=== PATIENT | male | born 1965 | race Caucasian/White ===

== ENCOUNTER 2019-05-22 05:47 | Day surgery (SDC) | payer OTHER, SELFPAY ==
[2019-05-21 13:10] VITALS: BMI 31.4
--- NOTE | 2019-05-22 05:59 | PM.HPUD ---
H&P update H&P Update: DATE OF SURGERY/PROCEDURE: 05/22/19 DATE H&P PERFORMED: 05/13/19 H&P UPDATE INFORMATION: H&P completed within last 30 days, No changes to prior documentation and H&P is in [facility] EMR on date indicated PREOP DIAGNOSIS: Deep foreign body right foot PRIMARY INDICATION FOR PROCEDURE: Deep foreign body right foot, persistent pain following puncture wound PLANNED PROCEDURE: Operation Date: 05/22/19 07:10 Proposed Procedures p Foreign Body Removal 75835 S91.341A(Right) - Markel López DPM Full H&P Perinent History: Medical/Surgical History: Medical History (Updated 05/13/19 @ 17:39 by Markel López DPM) COPD (chronic obstructive pulmonary disease) (Acute) Depression with anxiety (Acute) Hypertension (Acute) Family History: Family History (Updated 05/13/19 @ 10:06 by Chapis Hu LPN) Father COPD (chronic obstructive pulmonary disease) Mother Hypertension Denies family history of Diabetes CAD (coronary artery disease) Clotting disorder Dementia Hyperlipidemia Psychiatric illness Chronic kidney disease (CKD) Suicide Anesthesia complication Bleeding disorder Family history of premature coronary artery disease Lung disease Cancer Stroke Social History: Social History Smoking and tobacco status: former smoker Quit status (tobacco): has quit using tobacco Year quit tobacco: 12 years ago Alcohol intake: current Alcohol intake frequency: holidays/special occasions only Current occupational status: employed Current occupation: [employer]
[2019-05-22 06:04] VITALS: BP 127/82; PULSE 102; RESP 20; TEMP 36.3; O2SAT 96
[2019-05-22] MEDS: sodium chloride 0.9% 1,000 ML 30 ML IV (06:17)
--- NOTE | 2019-05-22 06:33 | P.ANESASSM_ITS ---
Pre-Anesthetic Assessment Pre-Anesthetic Assessment: Height/Weight: Height 1.96 m Weight 120.202 kg Temp Pulse Resp BP Pulse Ox 97.4 F L 102 H 20 H 127/82 96 05/22/19 06:04 05/22/19 06:04 05/22/19 06:04 05/22/19 06:04 05/22/19 06:04 Preop Diagnosis: Deep foreign body right foot Proposed Procedure: Operation Date: 05/22/19 07:10 Proposed Procedures p Foreign Body Removal 72541 S91.341A(Right) - Markel López DPM Last intake: Intake Last Liquid Date 05/21/19 Last Liquid Time 23:00 Last Solid Date 05/21/19 Last Solid Time 18:00 Social: Packs per day: 3 Pack years: 70 Comment: quit 12 y ago Exam: Pre-Anes Outpt Exam: alert, oriented x 3, clear to auscultation bilaterally and regular rate & rhythm Airway: Submandibular: WNL Cervical ROM: WNL MP: 1 Pulmonary: Pulmonary: COPD CV/HEM: CV/HEM: HTN Comments: rx'd 3y stress test 2y negative Anesthetic Plan: ASA status: 2 Anesthesia: General Meds/Allergies Current Medications: Current Medications Generic Name Dose Route Start Last Admin Trade Name Freq PRN Reason Stop Dose Admin Sodium Chloride 1,000 mls @ 30 ml s/hr 05/22/19 06:15 05/22/19 06:17 Sodium Chloride 0.9% IV 05/23/19 06:14 30 mls/hr .Q24H QI Administration PFSH Anesthesia PFSH: Medical History (Updated 05/13/19 @ 17:39 by Markel López DPM) COPD (chronic obstructive pulmonary disease) (Acute) Depression with anxiety (Acute) Hypertension (Acute) Surgical History (Updated 05/21/19 @ 13:05 by Mayra Quinn RN) History of incision and drainage (Acute) Patient stepped on a splinter and had to have it removed . In the [place] Social History Smoking and tobacco status: former smoker Quit status (tobacco): has quit using tobacco Year quit tobacco: 12 years ago Alcohol intake: current Alcohol intake frequency: holidays/special occasions only Current occupational status: employed Current occupation: [employer] Anesthesia Cardiac Studies: No Data to Display
[2019-05-22 07:53] VITALS: BP 104/75; PULSE 84; RESP 18; TEMP 36.1; O2SAT 97
--- NOTE | 2019-05-22 07:56 | PM.OP ---
Operative Report Date of procedure: May 22, 2019 Pre-op Diagnosis: Deep foreign body right foot Post-op diagnosis: same Post-op Findings: Foreign body consistent with wood right plantar forefoot Procedure Done: Deep foreign body removal right foot Implants: No implants Specimens removed/disposition: Foreign body removed consistent with a wood sent to microbiology for culture and sensitivity Pathology: none sent Surgeon: Markel López D.P.M. Library Cataloging Technician: [employer] Anesthesia: MAC and Local Estimated blood loss (mL): 2 Tourniquet time: 24 minutes IV fluids: None Urine output: None Complications: No complications Findings: Deep foreign body consistent with wood splinter Condition: stable Disposition: PACU Brief History: Patient is a pleasant 53-year-old male who sustained a puncture wound to his foot while on a work trip in the [place]. He has had persistent pain. On MRI foreign body appreciated with walled off abscess. Patient requesting removal. Risks include pain, bleeding, numbness, infection, painful scar, delayed healing, need for antibiotics, need for further surgical intervention. Also risk for damage to adjacent soft tissue structures such as tendon, muscle and nerve. Also risk for fat pad atrophy and metatarsalgia. Patient wishes to proceed. Verbal and written consent obtained. Procedure: Under mild sedation the patient was brought to the operating room and placed on the operating table in supine position. A timeout was performed. Anesthesia was then administered by the anesthesia service. Local anesthesia was injected by myself consisting of 30 cc of 0.5% Marcaine plain and a fourth ray block to the right foot. Well-padded pneumatic tourniquet was applied to the right ankle. The right lower extremity was then scrubbed, prepped and draped utilizing normal aseptic technique. Right foot was then examined a weighted with an Esmarch bandage and the tourniquet was inflated to 250 mmHg. Attention was directed to the plantar aspect of the right forefoot and at the level of the fourth intermetatarsal space a curvilinear incision was made with a #15 blade through skin and dissection was carried down through subcutaneous tissue in 2 layers of deep fascia utilizing a combination of sharp and blunt technique. Care was taken to retract and preserve neurovascular and tendinous structures. Bleeders were ligated and cauterized as necessary. A abscess with serosanguineous fluid was encountered and drained, a small foreign body consistent with wood measuring 1 mm x 4 mm was visualized and removed, this was sent to microbiology for culture and sensitivity. Excisional debridement was performed of all devitalized tissue this was minimal this included skin, dermis, epidermis, subcutaneous tissue, adipose and deep fascia. Incision site was flushed with saline solution. No remaining foreign body or devitalized tissue appreciated. Deep layer was reapproximated with 2-0 Vicryl. Subcutaneous tissue closed with 4-0 Vicryl and skin closed with 3-0 nylon. Incision site was dressed with Adaptic, sterile 4 x 4's, Kerlix and Thanh wrap. Cam boot was applied. Tourniquet was then deflated and a prompt hyperemic response was noted to the distal digits of the right foot. Patient tolerated the procedure and anesthesia well and was transferred to the PACU with vital signs stable and vascular status intact. Following a period of post operative monitoring he will be discharged home was provided a prescription for Ridgeway 7.5/325 to be taken every 4-6 hours as needed for pain he is to use this judiciously. Also a prescription for Bactrim DS was sent to patient's pharmacy to be taken twice daily for 10 days. Patient is to be limited weightbearing cam boot at all times was also sent an order for crutches. He was provided my cell phone number and is to contact me with any postoperative questions or concerns.
[2019-05-22 08:06] VITALS: BP 115/66; PULSE 90; RESP 18; O2SAT 97
[2019-05-22 08:48] VITALS: BP 124/80; PULSE 86; RESP 18; O2SAT 97
== END 2019-05-22 08:53 | disposition home or self-care (01) ==
PROVIDERS: Family Provider Family Medicine; Visit Provider Podiatrist Foot & Ankle Surgery
PROC: (CPT 28190; principal; 2019-05-22 07:00)
DX: S91.342A Puncture wound with foreign body, left foot, initial encounter (principal); X58.XXXA Exposure to other specified factors, initial encounter; J44.9 Chronic obstructive pulmonary disease, unspecified; I10 Essential (primary) hypertension; F32.9 Major depressive disorder, single episode, unspecified; Z87.891 Personal history of nicotine dependence; Z82.49 Family history of ischemic heart disease and other diseases of the circulatory system
CPT/HCPCS: 28190; 12345; 87070; 87075; 87077; 87176; 87186; 87205; J0690; J2001; J2250; J2704; J3010; J3490; J7030

== ENCOUNTER → 2020-01-08 11:57 | Outpatient (BNVA) | payer OTHER, SELFPAY | PROVIDERS: Family Provider Family Medicine; Visit Provider Surgery | DX: Z20.828 Contact with and (suspected) exposure to other viral communicable diseases (principal) | CPT/HCPCS: 87635 ==

== ENCOUNTER 2020-01-13 08:10 | Day surgery (SDC) | payer OTHER, SELFPAY ==
[2020-01-11 12:03] VITALS: BMI 32.0
[2020-01-13 08:29] VITALS: BP 134/81; PULSE 89; RESP 18; TEMP 36.8; O2SAT 94
[2020-01-13] MEDS: sodium chloride 0.9% 1,000 ML 30 ML IV (08:49)
--- NOTE | 2020-01-13 09:14 | W.PM.OPSUD ---
Surgery/Procedure H&P Update DATE OF PROCEDURE: January 13, 2020 DATE H&P PERFORMED: 12/28/19 H&P UPDATE INFORMATION: I have reviewed H&P completed within last 30 days, I have examined patient prior to procedure and No changes to prior documentation PREOP DIAGNOSIS: Screening colonoscopy PRIMARY INDICATION FOR PROCEDURE: The same PLANNED PROCEDURE: Operation Date: 01/13/20 09:45 Proposed Procedures p Colonoscopy 68037 Z12.11(Not Applicable) - Juan Pablo Soto MD
--- NOTE | 2020-01-13 09:28 | ANES.PREANE2 ---
Pre-Anesthetic Assessment Pre-Anesthetic Assessment: Height/Weight: Height 1.96 m Weight 122.47 kg Temp Pulse Resp BP Pulse Ox 98.2 F 89 18 134/81 94 01/13/20 08:29 01/13/20 08:29 01/13/20 08:29 01/13/20 08:29 01/13/20 08:29 Preop Diagnosis: Screening colonoscopy Proposed Procedure: Operation Date: 01/13/20 09:45 Proposed Procedures p Colonoscopy 53145 Z12.11(Not Applicable) - Juan Pablo Soto MD Familial anesthetic complications: none Was Beta Christopher taken within 24 hours: N/A Last intake: Intake Last Liquid Date 01/12/20 Last Liquid Time 23:00 Last Solid Date 01/12/20 Last Solid Time 07:00 Social: Social History: No alcohol and No tobacco Exam: Pre-Anes Outpt Exam: alert, oriented x 3, clear to auscultation bilaterally and regular rate & rhythm Airway: Cervical ROM: WNL MP: 2 Dentition: Full Pulmonary: Pulmonary: COPD CV/HEM: CV/HEM: HTN Anesthetic Plan: ASA status: 2 Anesthesia: MAC Risk of > 500 ml blood loss (7ml/kg in children): No Meds/Allergies Current Medications: Current Medications Generic Name Dose Route Start Last Admin Trade Name Freq PRN Reason Stop Dose Admin Sodium Chloride 1,000 mls @ 30 ml s/hr 01/13/20 08:30 01/13/20 08:49 Sodium Chloride 0.9% IV 01/14/20 08:29 30 mls/hr .Q24H QI Administration PFSH Anesthesia PFSH: Medical History COPD (chronic obstructive pulmonary disease) Depression with anxiety Hypertension Surgical History History of incision and drainage Patient stepped on a splinter and had to have it removed . In the [place] Hx of hemorrhoidectomy Family History Father COPD (chronic obstructive pulmonary disease) Mother Hypertension Denies family history of Diabetes CAD (coronary artery disease) Clotting disorder Dementia Hyperlipidemia Psychiatric illness Chronic kidney disease (CKD) Suicide Anesthesia complication Bleeding disorder Family history of premature coronary artery disease Lung disease Cancer Stroke Social History Smoking and tobacco status: former smoker Quit status (tobacco): has quit using tobacco Year quit tobacco: 12 years ago Alcohol intake: current Alcohol intake frequency: holidays/special occasions only Current occupational status: employed Current occupation: [employer] Anesthesia Cardiac Studies: No Data to Display
[2020-01-13 10:52] VITALS: BP 116/84; PULSE 89; RESP 16; TEMP 36.3; O2SAT 93
[2020-01-13 11:15] VITALS: BP 119/67; PULSE 93; RESP 16; O2SAT 97
--- NOTE | 2020-01-13 12:01 | ANE.PACU2 ---
Inpatient post-anesthesia follow up: Airway intact: Yes Vital signs: Temperature 97.4 F Pulse Rate 93 Respiratory Rate 16 Blood Pressure 119/67 Pulse Oximetry 97 Oxygen Delivery Me thod Room Air Oxygen Flow Rate 2 Fraction of Inspir ed Oxygen Hydration adequate: Yes Nausea and vomiting: No Mental status: Baseline
== END 2020-01-13 11:20 | disposition home or self-care (01) ==
PROVIDERS: PCP Family Medicine; Visit Provider Surgery
PROC: 0DJD8ZZ Inspection of Lower Intestinal Tract, Via Natural or Artificial Opening Endoscopic (ICD-10-PCS; CPT 45378; principal; 2020-01-13 09:45)
DX: Z12.11 Encounter for screening for malignant neoplasm of colon (principal); D12.5 Benign neoplasm of sigmoid colon; J44.9 Chronic obstructive pulmonary disease, unspecified; I10 Essential (primary) hypertension
CPT/HCPCS: 12345; 45385; 88305; J2704; J7030

== ENCOUNTER → 2020-03-24 11:54 | Outpatient (BNVA) | payer OTHER, SELFPAY | PROVIDERS: PCP Family Medicine; Visit Provider Surgery | DX: Z20.828 Contact with and (suspected) exposure to other viral communicable diseases (principal); Z01.812 Encounter for preprocedural laboratory examination | CPT/HCPCS: 87635 ==

== ENCOUNTER 2020-03-29 06:27 | Day surgery (SDC) | payer OTHER, SELFPAY ==
[2020-03-25 16:25] VITALS: BMI 32.0
[2020-03-29] MEDS: sodium chloride 0.9% 1,000 ML 30 ML IV (06:54)
--- NOTE | 2020-03-29 07:29 | ANES.PREANE2 ---
Pre-Anesthetic Assessment Pre-Anesthetic Assessment: Height/Weight: Height 1.96 m Weight 122.47 kg Preop Diagnosis: Symptomatic umbilical hernia Proposed Procedure: Operation Date: 03/29/20 08:05 Proposed Procedures p Open Umbilical Hernia Repair w/ possible Mesh 65010 K42.9(Not Applicable) - Juan Pablo Soto MD Was Beta Christopher taken within 24 hours: N/A Last intake: Intake Last Liquid Date 03/28/20 Last Liquid Time 20:30 Last Solid Date 03/28/20 Last Solid Time 19:00 Social: Social History: Tobacco Exam: Pre-Anes Outpt Exam: alert, oriented x 3, clear to auscultation bilaterally and regular rate & rhythm Airway: Submandibular: WNL Cervical ROM: WNL MP: 2 Pulmonary: Pulmonary: COPD CV/HEM: CV/HEM: HTN : : None reported Hepatic: Hepatic: None reported GI: GI: None reported Metabolic: Metabolic: None reported Musc/skel: Musc/skel: None reported Neuropsych: Neuropsych: Anxiety Anesthetic Plan: ASA status: 3 Anesthesia: General Meds/Allergies Current Medications: Current Medications Generic Name Dose Route Start Last Admin Trade Name Freq PRN Reason Stop Dose Admin Sodium Chloride 1,000 mls @ 30 ml s/hr 03/29/20 06:45 03/29/20 06:54 Sodium Chloride 0.9% IV 03/30/20 06:44 30 mls/hr .Q24H QI Administration PFSH Anesthesia PFSH: Medical History Abdominal pain Colon polyp COPD (chronic obstructive pulmonary disease) Depression with anxiety Hypertension Surgical History History of incision and drainage Patient stepped on a splinter and had to have it removed . [place] the [place] Hx of hemorrhoidectomy Family History Father COPD (chronic obstructive pulmonary disease) Mother Hypertension Denies family history of Diabetes CAD (coronary artery disease) Clotting disorder Dementia Hyperlipidemia Psychiatric illness Chronic kidney disease (CKD) Suicide Anesthesia complication Bleeding disorder Family history of premature coronary artery disease Lung disease Cancer Stroke Social History Smoking and tobacco status: former smoker Quit status (tobacco): has quit using tobacco Year quit tobacco: 12 years ago Alcohol intake: current Alcohol intake frequency: holidays/special occasions only Current occupational status: employed 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
--- NOTE | 2020-03-29 08:01 | W.PM.OPSFHP ---
Same Day Surgery H&P Indication for Procedure/HPI DATE OF PROCEDURE: March 29, 2020 CHIEF COMPLAINT/INDICATIONFOR SURGICAL PROCEDURE: Bellybutton hernia PREOP DIAGNOSIS: Symptomatic umbilical hernia PLANNED PROCEDRUE: Operation Date: 03/29/20 08:05 Proposed Procedures p Open Umbilical Hernia Repair w/ possible Mesh 36458 K42.9(Not Applicable) - Juan Pablo Soto MD Patient comes today as a follow-up status post screening colonoscopy and was found to have a large polyp and pathology showed: Final Diagnosis A. Colon, sigmoid colon polyp , polypectomy: ?Tubulovillous adenoma with focal high-grade dysplasia. ?Polypectomy margin is uninvolved. Patient continues to show symptoms with his umbilical hernia and is interested to proceed with surgery but he wants to wait till after gi. Interim history 03/29/2020 Patient comes today for outpatient procedure in the form of open repair of umbilical hernia with possible mesh placement, patient reports that he feels that the hernia got bigger. ROS All systems have been reviewed negative except as per the above or per problem list Medications/Allergies* Home Medications Medication Instructions Recorded Confirmed Type alprazolam 1 mg tablet,extended 1 mg PO BEDTIME 05/13/19 03/29/20 History release 24 hr amlodipine 10 mg tablet 10 mg PO QDAY 05/13/19 03/29/20 History escitalopram oxalate 20 mg tablet 20 mg PO QDAY 05/13/19 03/29/20 History fluticasone 250 mcg-salmeterol 50 1 inh INHALATION BID 05/13/19 03/29/20 History mcg/dose blistr powdr for inhalation hydrochlorothiazide 25 mg tablet 25 mg PO QAM 05/13/19 03/29/20 History irbesartan 300 mg tablet 300 mg PO QDAY 05/13/19 03/29/20 History tiotropium bromide 2.5 2 puff INHALATION QAM 05/13/19 03/29/20 History mcg/actuation mist for inhalation pseudoephedrine HCl [Sudafed 12 120 mg PO BID 05/21/19 03/29/20 History Hour] Allergies/Adverse Reactions Allergy/AdvReac Type Severity Reaction Status Date / Time No Known Allergies Allergy Verified 03/29/20 08:02 Current Medications: Generic Name Dose Route Start Last Admin Trade Name Freq PRN Reason Stop Dose Admin Sodium Chloride 1,000 mls @ 30 mls/hr 03/29/20 06:45 03/29/20 06:54 Sodium Chloride 0.9% IV 03/30/20 06:44 30 mls/hr .Q24H QI Administration Pertinent History/Comorbid Conditions* Medical History (Updated 01/26/20 @ 14:21 by Markel López DPM) Abdominal pain Colon polyp COPD (chronic obstructive pulmonary disease) Depression with anxiety Hypertension Surgical History (Updated 01/27/20 @ 16:05 by Juan Pablo Soto MD) History of incision and drainage Patient stepped on a splinter and had to have it removed . [place] the [place] Hx of hemorrhoidectomy Family History (Updated 05/13/19 @ 10:06 by Chapis Hu LPN) COPD (chronic obstructive pulmonary disease) Father Hypertension Mother Denies family history of Diabetes CAD (coronary artery disease) Clotting disorder Dementia Hyperlipidemia Psychiatric illness Chronic kidney disease (CKD) Suicide Anesthesia complication Bleeding disorder Family history of premature coronary artery disease Lung disease Cancer Stroke Social History Smoking and tobacco status: former smoker Quit status (tobacco): has quit using tobacco Year quit tobacco: 12 years ago Alcohol intake: current Alcohol intake frequency: holidays/special occasions only Current occupational status: employed Current occupation: [employer] Pertinent Exam Findings oriented x 3, clear to auscultation bilaterally, regular rate & rhythm, operative site marked and procedure specific exam findings (Abdominal examination soft nontender no signs of peritonitis, umbilical her) Recommendations Surgery/Procedure today (Open umbilical hernia repair with possible mesh placement.) Coding Level of Care Code Acute Clay Hoister for Mitzy Garza
[2020-03-29] MEDS: lidocaine 2% INJ 20 mL INJECTION (08:41)
--- NOTE | 2020-03-29 09:30 | P.OP_ITS ---
Operative Report Date of procedure: March 29, 2020 Pre-op Diagnosis: Symptomatic umbilical hernia Post-op diagnosis: same Post-op Findings: Fascial defect 2 inches Procedure Done: opoen Umblical Hernia reapir with mesh placement Implants: Polypropylene mesh Specimens removed/disposition: Hernia sac and contents Surgeon: Juan Pablo Soto It Senior Software Engineer Java: Surgical Techwindy [employer]acon Circulating Nurse Karlene Anesthesia: General (C RNA Ricardo) Estimated blood loss (mL): 10 Condition: stable Disposition: same day Brief History: This is a pleasant 54 years old gentleman referred to my practice with symptomatic umbilical hernia. After thorough history physical examination reviewing the chart I did correctional substance abuse counselor the patient for open umbilical hernia repair with possible mesh placement. Informed consent per chart Procedure: Patient was identified in holding area and the site of the hernia was marked by me ,Patient was brought then to the operating room, general endotracheal anesthesia was administered by the anesthesia provider.prophylactic IV antibiotics were given per protocol Time-out was done verifying the patient's name/date of /planned procedure and destination after the procedure, all were in agreement.SCDs confirmed to be functioning, preoperative antibiotics administered per protocol, and beta haylee protocol was confirmed. Prep and drape of the abdomen was done under the usual sterile technique. I started by Infraumbilical skin incision.I was able to identify the incarcerated ventral hernia, dissection was carried all the way down to the fascia, hernia sac was then opened and the sac was excised in addition to excess omental tissues. Tissues excise sent for permanent pathology I was able to free the overlying fat on top of the fascia, facilitate primary closure At that point the fascial defect was about two inches in diameter, after freeing all the adhesions, under direct visualization I was able to use #1 PDS to repair the defect primarily, as an interrupted horizontal mattress sutures, thorough irrigation of the wound was then achieved and hemostasis. Followed by polypropylene piece of mesh that was fashioned and was placed on lay and secured with 2-0 silk sutures to the underlying fascia followed by 3-0 Vicryl was used to attach the umbilicus to the underlying fascia, followed by deep dermal interrupted stitches, followed by 2-0 Vicryl, then 4-0 Monocryl was used for subcuticular closure of the skin incision. Lidocaine 2% was used for local infiltration to help postoperative pain Surgical glue was then applied followed by by an abdominal binder. Anesthesia was asked to extubate the patient deeper Counts of sponges, needles and instruments were completed at the end of the procedure Patient tolerated the procedure well and was taken to the recovery area in stable condition I was present for the whole entire procedure
[2020-03-29 09:51] VITALS: BP 124/78; PULSE 99; RESP 12; TEMP 36.4; O2SAT 95
[2020-03-29 10:00] VITALS: BP 113/77; PULSE 83; RESP 14; O2SAT 96
[2020-03-29 10:05] VITALS: BP 117/69; PULSE 87; RESP 13; TEMP 36.1; O2SAT 94
[2020-03-29 10:12] VITALS: BP 129/71; PULSE 85; RESP 14; TEMP 36.4; O2SAT 96
--- NOTE | 2020-03-29 10:25 | ANE.PACU2 ---
Inpatient post-anesthesia follow up: Airway intact: Yes Vital signs: Temperature 97.6 F Pulse Rate 85 Respiratory Rate 14 Blood Pressure 129/71 Pulse Oximetry 96 Oxygen Delivery Me thod Room Air Oxygen Flow Rate 8 Fraction of Inspir ed Oxygen Hydration adequate: Yes Nausea and vomiting: No Pain level: 3 Mental status: Baseline
[2020-03-29 10:28] VITALS: BP 107/78; PULSE 84; RESP 14; O2SAT 97
[2020-03-29] MEDS: HYDROcodone-acetaminophen 5-325 mg Tablet 1 TAB PO (10:32)
== END 2020-03-29 10:52 | disposition home or self-care (01) ==
PROVIDERS: PCP Family Medicine; Visit Provider Surgery
PROC: (CPT 49585; principal; 2020-03-29 08:05)
DX: K42.9 Umbilical hernia without obstruction or gangrene (principal); J44.9 Chronic obstructive pulmonary disease, unspecified; I10 Essential (primary) hypertension; F41.9 Anxiety disorder, unspecified; Z87.891 Personal history of nicotine dependence
CPT/HCPCS: 49585; 12345; 88302; J0131; J0690; J1100; J2370; J2405; J2704; J2710; J3010; J3490; J7030

== ENCOUNTER → 2021-02-16 12:52 | Outpatient (BNVA) | payer OTHER, SELFPAY | PROVIDERS: PCP Family Medicine; Visit Provider Surgery | DX: Z20.822 Contact with and (suspected) exposure to COVID-19 (principal); Z86.010 Personal history of colon polyps; Z98.890 Other specified postprocedural states | CPT/HCPCS: 87635 ==

== ENCOUNTER 2021-02-22 06:30 | Day surgery (SDC) | payer OTHER, SELFPAY ==
[2021-02-20 11:27] VITALS: BMI 31.4
--- NOTE | 2021-02-22 06:40 | P.HP_ITS ---
Same Day Surgery H&P Indication for Procedure/HPI DATE OF PROCEDURE: February 22, 2021 CHIEF COMPLAINT/INDICATIONFOR SURGICAL PROCEDURE: I'm here for colonoscopy PREOP DIAGNOSIS: History of colon polyp PLANNED PROCEDRUE: Operation Date: 02/22/21 07:30 Proposed Procedures p Colonoscopy 50367 Z86.010(Not Applicable) - Juan Pablo Soto MD 01/05/2021 Patient comes today for follow-up as he did undergo a colonoscopy back in December 2019 and a large sigmoid polyp was identified that was excised and removed and pathology did show at the time; Colon, sigmoid colon polyp , polypectomy: ?Tubulovillous adenoma with focal high-grade dysplasia. ?Polypectomy margin is uninvolved. She comes today to discuss surveillance colonoscopy and he denies any other constitutional symptoms or bleeding per rectum Interim history 02/22/2021 Patient comes today for surveillance colonoscopy ROS All systems have been reviewed negative except as per the above or per problem list Medications/Allergies* Home Medications Medication Instructions Recorded Confirmed Type alprazolam 1 mg tablet,extended 1 mg PO BEDTIME 05/13/19 02/20/21 History release 24 hr amlodipine 10 mg tablet 10 mg PO QDAY 05/13/19 02/20/21 History escitalopram oxalate 20 mg tablet 20 mg PO QDAY 05/13/19 02/20/21 History fluticasone 250 mcg-salmeterol 50 1 inh INHALATION BID 05/13/19 02/20/21 History mcg/dose blistr powdr for inhalation hydrochlorothiazide 25 mg tablet 25 mg PO QAM 05/13/19 02/20/21 History irbesartan 300 mg tablet 300 mg PO QDAY 05/13/19 02/20/21 History tiotropium bromide 2.5 2 puff INHALATION QAM 05/13/19 02/20/21 History mcg/actuation mist for inhalation pseudoephedrine HCl [Sudafed 12 120 mg PO BID 05/21/19 02/20/21 History Hour] Allergies/Adverse Reactions Allergy/AdvReac Type Severity Reaction Status Date / Time No Known Allergies Allergy Verified 01/07/21 08:09 Pertinent History/Comorbid Conditions* Medical History (Updated 01/07/21 @ 08:10 by Juan Pablo Soto MD) Abdominal pain Colon polyp COPD (chronic obstructive pulmonary disease) Depression with anxiety Hypertension Umbilical hernia Surgical History (Updated 01/27/20 @ 16:05 by Juan Pablo Soto MD) History of incision and drainage Patient stepped on a splinter and had to have it removed . [place] the [place] Hx of hemorrhoidectomy Family History (Updated 05/13/19 @ 10:06 by Chapis Hu LPN) COPD (chronic obstructive pulmonary disease) Father Hypertension Mother Denies family history of Diabetes CAD (coronary artery disease) Clotting disorder Dementia Hyperlipidemia Psychiatric illness Chronic kidney disease (CKD) Suicide Anesthesia complication Bleeding disorder Family history of premature coronary artery disease Lung disease Cancer Stroke Social History Smoking and tobacco status: never smoked Quit status (tobacco): has quit using tobacco Year quit tobacco: 12 years ago Alcohol intake: current Alcohol intake frequency: holidays/special occasions only Current occupational status: employed Current occupation: [employer] Pertinent Exam Findings alert, oriented x 3, clear to auscultation bilaterally, regular rate & rhythm and procedure specific exam findings (Abdominal examination nontender nondistended soft well-healed scar) Recommendations Surgery/Procedure today (Colonoscopy W possible biopsy) Other Plans: Plan of care; After thorough history and physical examination and reviewing the chart, plan to perform surveillance colonoscopy. I discussed with the patient in details the risks,benefits,alternatives and indications.The risk of aspiration, bleeding, soft tissue injury, perforation of the colon and other potential concomitant complications were explained to the patient in details,also the potential need for Laproscoy/Laparotomy to repair any related complications including but not limited to colectomy and or Closotomy.The patient understood this well and did agree to proceed. Rationale was carefully and clearly discussed with the patient.Appropriate informed consent have been reviewed and signed All questions have been answered and all concerns have been addressed to patient's satisfaction. Verbal and written Instructions were given to the patient for colonoscopy prep Coding Level of Care Code Acute Guide Foreign Tour for Mitzy Garza
[2021-02-22 06:47] VITALS: BP 126/86; PULSE 93; RESP 18; TEMP 36.4; O2SAT 96
[2021-02-22] MEDS: sodium chloride 0.9% 1,000 ML 30 ML IV (06:58)
--- NOTE | 2021-02-22 07:04 | P.ANESASSM_ITS ---
Pre-Anesthetic Assessment Pre-Anesthetic Assessment: Height/Weight: Height 1.96 m Weight 120.202 kg Temp Pulse Resp BP Pulse Ox 97.5 F L 93 18 126/86 96 02/22/21 06:47 02/22/21 06:47 02/22/21 06:47 02/22/21 06:47 02/22/21 06:47 Preop Diagnosis: History of colon polyp Proposed Procedure: Operation Date: 02/22/21 07:30 Proposed Procedures p Colonoscopy 42623 Z86.010(Not Applicable) - Juan Pablo Soto MD Was Beta Christopher taken within 24 hours: Yes Last intake: Intake Last Liquid Date 02/21/21 Last Liquid Time 23:00 Last Solid Date 02/20/21 Last Solid Time 18:00 Exam: Pre-Anes Outpt Exam: alert, oriented x 3, clear to auscultation bilaterally and regular rate & rhythm Airway: Submandibular: WNL Cervical ROM: WNL MP: 2 Dentition: Full History/ROS: No significant history except as noted and No significant complaints Pulmonary: Pulmonary: COPD and SOB CV/HEM: CV/HEM: HTN : : None reported Hepatic: Hepatic: None reported GI: GI: None reported Metabolic: Metabolic: None reported Musc/skel: Musc/skel: None reported Neuropsych: Neuropsych: None reported Anesthetic Plan: ASA status: 3 Anesthesia: Anesthesia Evaluation and MAC Risk of > 500 ml blood loss (7ml/kg in children): No Meds/Allergies Current Medications: Current Medications Generic Name Dose Route Start Last Admin Trade Name Freq PRN Reason Stop Dose Admin Sodium Chloride 1,000 mls @ 30 ml s/hr 02/22/21 05:30 02/22/21 06:58 Sodium Chloride 0.9% IV 02/23/21 05:29 30 mls/hr .Q24H QI Administration PFSH Anesthesia PFSH: Medical History Abdominal pain Colon polyp COPD (chronic obstructive pulmonary disease) Depression with anxiety Hypertension Umbilical hernia Surgical History History of incision and drainage Patient stepped on a splinter and had to have it removed . [place] Hx of hemorrhoidectomy Family History Father COPD (chronic obstructive pulmonary disease) Mother Hypertension Denies family history of Diabetes CAD (coronary artery disease) Clotting disorder Dementia Hyperlipidemia Psychiatric illness Chronic kidney disease (CKD) Suicide Anesthesia complication Bleeding disorder Family history of premature coronary artery disease Lung disease Cancer Stroke Social History Smoking and tobacco status: never smoked Quit status (tobacco): has quit using tobacco Year quit tobacco: 12 years ago Alcohol intake: current Alcohol intake frequency: holidays/special occasions only Current occupational status: employed Current occupation: [employer] Anesthesia Cardiac Studies: No Data to Display
[2021-02-22 07:51] VITALS: BP 106/73; PULSE 81; RESP 16; TEMP 36.3; O2SAT 97
[2021-02-22 08:05] VITALS: BP 105/73; PULSE 88; RESP 16; O2SAT 98
--- NOTE | 2021-02-22 15:36 | ANE.PACU2 ---
Inpatient post-anesthesia follow up: Airway intact: Yes Vital signs: Temperature 97.4 F Pulse Rate 88 Respiratory Rate 16 Blood Pressure 105/73 Pulse Oximetry 98 Oxygen Delivery Me thod Room Air Oxygen Flow Rate Fraction of Inspir ed Oxygen Hydration adequate: Yes Nausea and vomiting: No Pain level: 2 Mental status: Baseline
== END 2021-02-22 08:21 | disposition home or self-care (01) ==
PROVIDERS: PCP Family Medicine; Visit Provider Surgery
PROC: 0DJD8ZZ Inspection of Lower Intestinal Tract, Via Natural or Artificial Opening Endoscopic (ICD-10-PCS; CPT 45378; principal; 2021-02-22 07:30)
DX: Z12.11 Encounter for screening for malignant neoplasm of colon (principal); Z86.010 Personal history of colon polyps; J44.9 Chronic obstructive pulmonary disease, unspecified; I10 Essential (primary) hypertension; K63.5 Polyp of colon; D12.3 Benign neoplasm of transverse colon
CPT/HCPCS: 45380; 45385; 88305; 96360; J2704; J7030

== ENCOUNTER 2021-04-17 13:51 | Outpatient (CLI) | payer OTHER, SELFPAY ==
[2021-04-17 14:16] VITALS: BP 132/84; PULSE 87; RESP 18; TEMP 36.6; O2SAT 97; BMI 30.3
[2021-04-17 15:02] VITALS: BP 120/73; PULSE 83; RESP 17; TEMP 36.7; O2SAT 96
[2021-04-17 16:02] VITALS: BP 134/80; PULSE 81; RESP 18; TEMP 36.7; O2SAT 98
== END 2021-04-17 13:52 | disposition home or self-care (01) ==
LOC: OPS 13:51
PROVIDERS: PCP Family Medicine; Visit Provider Nurse Practitioner Family
DX: U07.1 COVID-19 (principal)
CPT/HCPCS: 96365

== ENCOUNTER 2021-11-09 15:26 | Outpatient (RCR) | payer BC, SELFPAY | END 2021-11-12 23:59 | disposition home or self-care (01) | LOC: SPT 15:26 | PROVIDERS: PCP Family Medicine; Referring Provider Family Medicine; Visit Provider Family Medicine | DX: G89.29 Other chronic pain (principal); M54.50 Low back pain, unspecified | CPT/HCPCS: 97161 ==

== ENCOUNTER 2021-11-13 06:00 | Outpatient (RCR) | payer BC, SELFPAY | END 2021-12-13 23:59 | disposition home or self-care (01) | LOC: SPT 06:00 | PROVIDERS: PCP Family Medicine; Visit Provider Family Medicine | DX: M54.50 Low back pain, unspecified (principal); G89.29 Other chronic pain | CPT/HCPCS: 97110 ==

== ENCOUNTER 2023-05-06 07:45 | Emergency (ER) | payer OTHER, SELFPAY ==
[2023-05-06 07:51] VITALS: BP 140/108; PULSE 79; TEMP 36.4; O2SAT 99; BMI 32.0
--- NOTE | 2023-05-06 07:57 | CT_ITS ---
WS: [id number] CT HEAD TECHNIQUE: Noncontrast CT of the head obtained from the skullbase to the vertex. CLINICAL INFORMATION: Trauma COMPARISON: 2016 DLP: 1708.[address] scans at [facility] use at least one of these dose optimization techniques: automated e xposure control; mA and/or kV adjustment per patient size (includes targeted exams where dose is matc hed to clinical indication); or iterative reconstruction. FINDINGS: No evidence of intracranial hemorrhage or mass effect. Ventricular system and basal cisterns are jones nt. Moderate small vessel changes with moderate parenchymal volume loss. No extra-axial fluid collect ions. No evidence of mass or mass effect. Intracranial vascular calcification. Basal ganglia calcific ations. Paranasal sinuses and mastoid air cells are well aerated. Occipital scalp laceration IMPRESSION: 1. No evidence of intracranial hemorrhage or mass effect. 2. Moderate small vessel changes with moderate parenchymal volume loss. 3. Intracranial vascular calcification. 4. No acute intracranial findings.
--- NOTE | 2023-05-06 07:57 | CT_ITS ---
WS: [id number] CT CERVICAL TRAUMA TECHNIQUE: Noncontrast CT of the cervical spine with coronal and sagittal reformatted images. CLINICAL INFORMATION: Trauma COMPARISON: 2016 DLP: 1708.[address] scans at [facility] use at least one of these dose optimization techniques: automated e xposure control; mA and/or kV adjustment per patient size (includes targeted exams where dose is matc hed to clinical indication); or iterative reconstruction. FINDINGS: Straightening of the normal cervical lordosis. Moderate spondylitic changes. Slight anterolisthesis C 3 on C4 C4 on C5. Disc space narrowing worse at C5-C6 and C6-C7. Normal craniocervical junction. Norm al C1-C2 articulation. Dens is normal in appearance. Normal occipital condyles. No high-grade spinal canal narrowing. Normal C1 ring. No evidence of acute fracture or dislocation. Mild central canal stenosis C5-6. Normal prevertebral soft tissues. Mastoids air cells are well aerated. IMPRESSION: 1. No evidence of acute fracture or dislocation. 2. Moderate spondylitic changes.
--- NOTE | 2023-05-06 07:57 | ED_ITS ---
HPI - Head Injury General: Chief complaint: Head Injury Stated complaint: fell lac to head, passed out Time Seen by Provider: 05/06/23 07:56 Source: patient Mode of arrival: ambulatory History of Present Illness: 57-year-old male presents emergency room after a fall. Slipped and fell on the ice and the back of his head he has a small laceration on the occiput. He is not on any anticoagulants he does report that he was unconscious for a period of time and has some memory loss. He denies any other injuries. No vomiting no diarrhea no vision changes. Complaint: head injury Onset (ago): minute(s) Mechanism of Injury: fall Place: home Loss of Consciousness: yes Location of injury: occipital Associated symptoms: Reports amnesia; Deny confusion, nausea, neck pain, numbness, syncope, tingling, vertigo, visual changes, vomiting or weakness Review of Systems Const: Denies: fever(s) or chills Card: Denies: syncope Resp: Denies: dyspnea GI: Denies: nausea or vomiting : Denies: dysuria, urinary frequency or urinary urgency Musc: Denies: neck pain Skin/Breast: Denies: rash Neuro: Denies: vertigo or confusion PFSH ED PFSH: Medical History Abdominal pain Colon polyp COPD (chronic obstructive pulmonary disease) Depression with anxiety Hypertension Umbilical hernia Surgical History History of incision and drainage Patient stepped on a splinter and had to have it removed . [place] Hx of hemorrhoidectomy Family History Father COPD (chronic obstructive pulmonary disease) Mother Hypertension Denies family history of Diabetes CAD (coronary artery disease) Clotting disorder Dementia Hyperlipidemia Psychiatric illness Chronic kidney disease (CKD) Suicide Anesthesia complication Bleeding disorder Family history of premature coronary artery disease Lung disease Cancer Stroke Social History Quit status (tobacco/nicotine): has quit using Year quit tobacco: 12 years ago Alcohol intake: current Alcohol intake frequency: holidays/special occasions only Substance/Drug Use: never Current occupational status: employed Current occupation: [employer] Physical Exam Const: COMMON NORMALS: no acute distress GENERAL APPEARANCE: cooperative and comfortable ORIENTATION/CONSCIOUSNESS: Yes awake, Yes oriented to person, Yes oriented to place and Yes oriented to time HENMT: COMMON NORMALS: normocephalic, atraumatic and hearing grossly normal bilaterally HEAD & SCALP: normocephalic and atraumatic Resp: COMMON NORMALS: normal respiratory effort, No retractions, No use of accessory muscles and clear to auscultation bilaterally AUSCULTATION: clear to auscultation bilaterally Cardio: COMMON NORMALS: regular rate, regular rhythm and No murmurs present (Cardio) RATE: regular rate RHYTHM: regular rhythm GI: COMMON NORMALS: Soft to palpation and No hepatosplenomegaly present AUSCULTATION: Yes normoactive bowel sounds PALPATION: Yes Soft to palpation, No Tenderness to palpation present (GI), No Guarding due to palpation present (GI) and Yes No hepatosplenomegaly present Extremity: COMMON NORMALS: normal to inspection, capillary refill normal, no clubbing, cyanosis or edema, no calf tenderness and no pedal edema Neuro: SENSORIUM/ORIENTATION: Yes oriented to person, Yes oriented to place and Yes oriented to time Skin: COMMON NORMALS: no rashes or lesions noted GENERAL SKIN EXAM: no rash es or lesions noted Procedures Laceration Laceration 1: Site: scalp Size (cm): 12.5 Description: linear Depth: simple, single layer Pre-repair: irrigated extensively Skin layer closed with: other (pankaj) Size (cm): other (Pankaj) Number of sutures: 7 Course Vital Signs: Vital signs: Vital Signs Temperature 97.6 F 05/06/23 07:51 Pulse Rate 79 05/06/23 07:51 Blood Pressure 140/108 05/06/23 07:51 Pulse Oximetry 99 05/06/23 07:51 Oxygen Delivery Me thod Room Air 05/06/23 07:51 MDM - Head Injury Medcial Decision Making Closed head injury CT head and neck unremarkable laceration repaired with pankaj wound care instructions given [place] out in 7 to 10 days Medical Records I reviewed the patient's medical records. Lab Data I reviewed the patient's lab results. All radiology interpretation(s) finalized by discharge Discharge Plan Discharge Patient Disposition: Home Clinical Impression: Closed head injury, Laceration of occipital scalp Condition: Stable Prescriptions: No Action alprazolam 1 mg tablet extended release 24 hr 1 mg PO BEDTIME Spiriva Respimat 2.5 mcg/actuation mist 2 puff INHALATION QAM amlodipine 10 mg tablet 10 mg PO QDAY escitalopram oxalate 20 mg tablet 20 mg PO QDAY hydrochlorothiazide 25 mg tablet 25 mg PO QAM fluticasone propion-salmeterol [Advair Diskus] 250-50 mcg/dose blister with device 1 inh INHALATION BID irbesartan 300 mg tablet 300 mg PO QDAY pseudoephedrine HCl [Sudafed 12 Hour] 120 mg tablet extended release 120 mg PO BID hydrocodone-acetaminophen [[place]] 5-325 mg tablet 1 tab PO Q6H PRN (Reason: pain) Qty: 28 0RF Discharge Orders: Discharge ED (Routine); Ordered 05/06/23 Ordered By: Fred Macias Referrals: Joon Mckeon MD [Primary Care Provider] - Discharge Diet: Usual diet Discharge Activity: Increase activity as tolerated Patient Instructions: Laceration (ED), Concussion (ED), Opioid Safety, Pain Management Activity Restrictions/Additional Instructions: Thank you for choosing [facility] for your healthcare needs today. Please realize this is an emergency room and that we are providing you with a medical screening exam and this may not be complete and all inclusive of all the testing and or work up that you may need to determine your ailment or severity of your illness. It is very important that you follow up as instructed or that you return to the Emergency Department should you have concerns or if your condition changes or worsens in any way. You are seen today after a fall CT of your head and neck were negative. You do likely have a mild concussion. Follow-up with your primary care doctor in the next week it is unusual to have a headache for some time after a fall such as this. He also have a laceration to the back of her scalp the pankaj should be removed in 7 to 10 days by your primary care physician. Coding Level of Care Code ED Rotor Pilot for Mitzy Garza
[2023-05-06] MEDS: tetanus-dipt-pertussis 0.5 mL SDV IM (08:28)
--- NOTE | 2023-05-06 09:11 | PC.NURSE ---
posterior scalp repair with small stapler using approx 5 yun. Sterile water used to cleanse site.
== END 2023-05-06 09:21 | disposition home or self-care (01) ==
PROVIDERS: Emergency Provider Family Medicine; PCP Family Medicine
DX: S01.01XA Laceration without foreign body of scalp, initial encounter (principal); Z87.891 Personal history of nicotine dependence; J44.9 Chronic obstructive pulmonary disease, unspecified; I10 Essential (primary) hypertension; W00.0XXA Fall on same level due to ice and snow, initial encounter; Z23 Encounter for immunization
CPT/HCPCS: 12004; 70450; 72125; 90471; 90715; 99284